=== PATIENT | female | born 1965 | race Native Hawaiian/Other Pacific Islander ===

== ENCOUNTER 2022-10-06 18:21 | Emergency (ER) | payer MEDICAID, SELFPAY ==
[2022-10-06 18:30] VITALS: BP 112/73; PULSE 91; RESP 16; TEMP 36.1; O2SAT 98; BMI 28.4
--- NOTE | 2022-10-06 19:19 | ED.GENADULT ---
HPI - General Adult General Time Seen by Provider: 19:20 Date Seen: 10/06/22 Chief complaint: Extremity Pain/Injury, Lower Stated complaint: Low Back Pain,Foot & Face Pain - COVID+ Time Seen by Provider: 10/06/22 18:35 Source: patient, family and system validation engineer (Family member per her request) Mode of arrival: ambulatory Limitations: no limitations History of Present Illness HPI narrative: Patient is a 57-year-old female coming in with her daughter whom she is having interpret for her with left low back pain going into her leg. Since Monday she has had pain in the left buttock area wraps around the groin area and she is feeling pain that shoots all the way down the left leg into the foot. She denies any weakness, there was no loss of bowel or bladder control. There is no numbness or tingling. She has had COVID which she tested positive for on Monday. She was feeling tired, had some chills and subsequently tested positive. Although symptoms have gone, there has been no fever, no respiratory symptoms whatsoever. She has a history years ago in [place] of similar symptoms, states she saw a chiropractor who helped her. There is no trauma that is noted with this. Despite having recent COVID she has not noted any fevers. She has difficulty with position changes, cannot sit comfortably for any length of time. Related Data Home Medications Medication Instructions Recorded Confirmed rosuvastatin 10 mg tablet 10 mg PO DAILY 10/06/22 10/06/22 Allergies Allergy/AdvReac Type Severity Reaction Status Date / Time No Known Drug Allergies Allergy Verified 10/06/22 18:35 Review of Systems Status of ROS: Reports: 6 or more systems reviewed and unremarkable except as noted in History and below [facility] Social History Smoking Status: Never smoker Do you use any of these nicotine containing products: None Second hand tobacco smoke exposure: No How often do you have a drink containing alcohol: monthly or less How often do you have six or more drinks on one occasion: Never AUDIT-C Alcohol total score: 1 Non-prescribed substance use: denies use service: No Exam Const: Vital Signs, click to edit/add: Vital Signs - 24 hr 10/06/22 18:30 Temperature 97 F L Pulse Rate [Pulse Oximeter] 91 Respiratory Rate 16 Blood Pressure [Ri ght Upper Arm] 112/73 Pulse Oximetry 98 Oxygen Delivery Me thod Room Air Documenting provider has reviewed patient's vital signs: yes Common normals: no apparent distress, average body habitus, oriented x3, no limitations, healthy appearing, alert and well nourished General appearance: cooperative, comfortable, well kempt and well developed Other: Very pleasant 57-year-old female sitting on the edge of the bed in exam room 1. HENMT: Common normals: normocephalic, head/scalp atraumatic and hearing grossly normal bilaterally Head and scalp: normocephalic and atraumatic Eye: Common normals: PERRL, EOMs intact bilaterally, conjunctivae normal and no scleral icterus Conjunctiva: conjunctiva(e) normal Pupil: PERRL Resp: Common normals: normal respiratory effort, no retractions, no use of accessory muscles and clear to auscultation bilaterally Auscultation: clear to auscultation bilaterally Cardio: Common normals: regular rate, regular rhythm, S1 normal heart sound, S2 normal heart sound, no gallops, no clicks and no murmurs Rate: regular rate Rhythm: regular rhythm Heart sounds: S1 normal and S2 normal Extremity: Other: No lower extremity edema, no calf tenderness on either side. She has a positive straight leg raise on the left side, negative on the right. Strength is 5 5 and symmetric on both sides, normal light touch sensation. DTRs are about 2 to 3+ and symmetric at the patellas. Did ambulate in with a cane. Complains of pain throughout her lumbar spine as well as left lumbar paraspinous area. She complains of pain throughout the left buttock and into the left sciatic notch. Neuro: Common normals: oriented x3, CN's II-XII intact bilaterally, moves all extremities, no focal motor deficits and no sensory deficits noted Sensorium/orientation: alert Psych: Appearance: well kempt Course Course Hospital Course: Reviewed with patient and her daughter that this seems to be consistent with sciatica. I am not clear if this has anything to do at all with having tested positive for COVID on Monday. Her symptoms suggest sciatica by history. There are no warning flags that would necessitate emergent neuro imaging. We discussed treatment with prednisone and Flexeril which she would like to try. When she is adequately out of quarantine For the COVID, can contact a chiropractor. Prescriptions will be provided from [facility], prednisone 20 b.i.d. x5 days and Flexeril 10 mg t.i.d. p.r.n., 15 prescribed. Vital Signs Vital signs: Initial Vital Signs Temperature 97 F L 10/06/22 18:30 Temperature Source Temporal Artery Scan 10/06/22 18:30 Pulse Rate 91 10/06/22 18:30 Respiratory Rate 16 10/06/22 18:30 Blood Pressure 112/73 10/06/22 18:30 Blood Pressure Mean 86 10/06/22 18:30 Blood Pressure Position Sitting 10/06/22 18:30 Pulse Oximetry 98 10/06/22 18:30 Oxygen Delivery Method 10/06/22 18:30 Vital Signs Temperature 97 F L 10/06/22 18:30 Pulse Rate 91 10/06/22 18:30 Respiratory Rate 16 10/06/22 18:30 Blood Pressure 112/73 10/06/22 18:30 Pulse Oximetry 98 10/06/22 18:30 Oxygen Delivery Method 10/06/22 18:30 Temperature 97 F L 10/06/22 18:30 Pulse Rate 91 10/06/22 18:30 Respiratory Rate 16 10/06/22 18:30 Blood Pressure 112/73 10/06/22 18:30 Pulse Oximetry 98 10/06/22 18:30 Oxygen Delivery Method 10/06/22 18:30 Critical Care Time Critical Care Time Critical Care Time: No Discharge Plan Discharge Clinical Impression: Acute left-sided back pain with sciatica Condition: Stable Instructions: Lumbar Radiculopathy (ED), Lower Back Exercises (ED) Additional Instructions: Activity as tolerated, the idea is relative rest and no position for any length of time. Can try ice or heat to the low back area in use which helps the best. Tylenol 1000 mg 3 times a day baseline for pain. Can supplement with ibuprofen as needed for extra pain control. Take prednisone 20 mg twice a day for 5 days, take with food to protect your stomach. Have written for Flexeril a muscle relaxant, can use 3 times a day but be where that it can be sedating. You can follow-up with a chiropractor once you are of quarantine from [facility]. Otherwise, consider follow-up in clinic and get a referral for physical therapy. Activity Level: Activity as Tolerated Prescriptions: No Action rosuvastatin 10 mg tablet 10 mg PO DAILY Label Comments: TAKE ONE TABLET BY MOUTH EVERY DAY Stand Alone Forms: [employer] Info Instructions
== END 2022-10-06 20:01 | disposition home or self-care (01) ==
PROVIDERS: Emergency Provider Family Medicine
DX: M54.42 Lumbago with sciatica, left side (principal)
CPT/HCPCS: 99282; 99283